=== PATIENT | female | born 1945 | race Caucasian/White ===

== ENCOUNTER 2018-01-13 14:44 | Outpatient (CLI) | payer MEDICARE, BC | END 2018-01-13 14:45 | disposition home or self-care (01) | LOC: BICMAMMO 14:44 | PROVIDERS: ATTEND Internal Medicine | DX: R05 Cough; M85.80 Other specified disorders of bone density and structure, unspecified site; M81.0 Age-related osteoporosis without current pathological fracture; I65.22 Occlusion and stenosis of left carotid artery | CPT/HCPCS: 71046; 77080; 93880 ==

== ENCOUNTER 2024-03-18 09:59 | Outpatient (CLI) | payer MEDICARE, BC | END 2024-03-18 10:00 | disposition home or self-care (01) | LOC: BICCT 09:59 | PROVIDERS: ATTEND Internal Medicine | DX: R91.1 Solitary pulmonary nodule (principal); R05.3 Chronic cough | CPT/HCPCS: 71250 ==

== ENCOUNTER 2024-11-23 05:35 | Day surgery (SDC) | payer MEDICARE, BC ==
[2024-11-22 14:59] VITALS: BMI 24.6
[2024-11-23] MEDS ORDERED: PROPOFOL 20 ML ONE ×2 (06:28→06:29)
[2024-11-23] MEDS ORDERED: Betamet Acet/Betamet Na Ph 30 MG/5 ML VIAL ONE (06:48)
[2024-11-23] MEDS ORDERED: Lidocaine 2% PF 5 ML VIAL ONE (06:48)
[2024-11-23] MEDS ORDERED: Iopamidol 10 ML FS ONE (06:49)
[2024-11-23] MEDS ORDERED: Midazolam HCl 2 mg/2 ml Vial ONE (07:05)
[2024-11-23] MEDS ORDERED: fentaNYL 50 mcg/mL 1 mL Vial ONE (07:11)
[2024-11-23] MEDS ORDERED: Ondansetron PF 4 MG/2 ML Vial ONE (07:13)
[2024-11-23] MEDS ORDERED: diphenhydrAMINE 50 MG/ML VIAL ONE (07:13)
== END 2024-11-23 08:25 | disposition home or self-care (01) ==
LOC: SDC 05:35
PROVIDERS: ATTEND Student in an Organized Health Care Education/Training Program
PROC: 0S9B30Z Drainage of Left Hip Joint with Drainage Device, Percutaneous Approach (ICD-10-PCS; principal; 2024-11-23)
DX: M16.12 Unilateral primary osteoarthritis, left hip (principal); M16.11 Unilateral primary osteoarthritis, right hip; I10 Essential (primary) hypertension; M47.26 Other spondylosis with radiculopathy, lumbar region; Z79.899 Other long term (current) drug therapy; Z79.890 Hormone replacement therapy
CPT/HCPCS: 20610; 73501; 93005; J0702; J1200; J2250; J2405; J2704; J3010; Q9966; 93010

== ENCOUNTER 2025-10-11 12:59 | Outpatient (CLI) | payer MEDICARE, BC | END 2025-10-11 13:00 | disposition home or self-care (01) | LOC: BICMAMMO 12:59 | PROVIDERS: ATTEND Internal Medicine | DX: Z13.820 Encounter for screening for osteoporosis (principal); M81.0 Age-related osteoporosis without current pathological fracture; Z78.0 Asymptomatic menopausal state; M85.89 Other specified disorders of bone density and structure, multiple sites | CPT/HCPCS: 77080 ==